=== PATIENT | male | born 1940 | race Caucasian/White ===

== ENCOUNTER 2016-10-22 15:27 | Inpatient (IN) | payer MEDICARE, OTHER ==
[~2016-10-22] VITALS: Ht 177.8 cm; Wt 95.7 kg
[2016-11-01] MEDS ORDERED: VESI10TA PO (09:30)
[2016-11-01] MEDS ORDERED: WARF4TAB51 PO (09:30)
[2016-11-01] MEDS ORDERED: HYDR-3583 PO (09:30)
[2016-11-01] MEDS ORDERED: CLON0.2T PO (09:30)
[2016-11-01] MEDS ORDERED: WARF-20 PO (09:30)
[2016-11-01] MEDS ORDERED: VITA200012 PO (09:48)
[2016-11-01] MEDS ORDERED: MULT1TAB85 PO (09:48)
[2016-11-01] MEDS ORDERED: IRON18TA2 PO (09:48)
[2016-11-01] MEDS ORDERED: VITA10007 PO (09:48)
[2016-11-11] MEDS ORDERED: TRANEXAMIC ACID INJ 906 MG in SODIUM CHLORIDE 0.9% INJ 100 ML IV SCH (09:45)
[2016-11-11] MEDS ORDERED: EXPAREL PERI-ARTICULAR INJECTION (TOTAL VOL. 60 ML) P-ARTICULR SCH ×2 (09:45)
[2016-11-11] MEDS ORDERED: METOPROLOL TARTRATE 25 MG TAB PO PRN (09:45)
[2016-11-11] MEDS ORDERED: ceFAZolin 2 GM PREMIX 50 ML IV SCH (09:45)
[2016-11-11] MEDS ORDERED: VANCOMYCIN 1000 MG/NS 250 ML (for <70 kg) IV SCH ×2 (09:45)
[2016-11-11] MEDS ORDERED: INSULIN HUMAN REGULAR 1,000 UNITS/10 ML VIAL SQ PRN (09:45)
[2016-11-11] MEDS ORDERED: SODIUM CHLORID 0.9% 500 ML IV SCH (10:00)
[2016-11-11] MEDS ORDERED: LACTATED RINGER'S 1000 ML IV SCH (10:00)
--- NOTE | 2016-11-11 11:16 | EKG ---
Date Performed: 11/11/2016 Time Performed: 10:03:56 PTAGE: 76 years EKG: ATRIAL FIBRILLATION LOW QRS VOLTAGE ABNORMAL ECG NO PREVIOUS TRACING DOCTOR: Valentin Hernández Interpretating Date/Time 11/11/2016 11:15:48
[2016-11-11] MEDS ORDERED: PHENYLEPH/NS 1000 MCG/10 ML SYR IV ONE (12:00)
[2016-11-11] MEDS ORDERED: NEOSTIGMINE 3 MG/3 ML SYR IV ONE (12:00)
[2016-11-11] MEDS ORDERED: ONDANSETRON HCL 4 MG/2 ML VIAL IV PUSH ONE (12:00)
[2016-11-11] MEDS ORDERED: PROPOFOL 200 MG/20 ML AMP IV ONE (12:00)
[2016-11-11] MEDS ORDERED: LACTATED RINGER'S 1000 ML INJ 1,000 ML IV ONE (12:00)
[2016-11-11] MEDS ORDERED: GENTAMICIN SULFATE 80 MG/2 ML VIAL ONE (12:15)
[2016-11-11] MEDS ORDERED: HEPARIN SODIUM - SQ 10,000 UNITS/ML VIAL ONE (12:23)
[2016-11-11] MEDS ORDERED: ceFAZolin INJ 1,000 MG VIAL ONE (12:41)
[2016-11-11] MEDS ORDERED: HYDROmorphone HCL PF 2 MG/ML VIAL ONE (12:55)
[2016-11-11] MEDS ORDERED: ACETAMINOPHEN 1000 MG/100 ML VIAL IV ONE (13:51)
[2016-11-11 14:30] VITALS: BP 141/85; PULSE 114; RESP 18; TEMP 95.2; O2SAT 99
[2016-11-11] MEDS: LACTATED RINGER'S 1000 ML INJ 1,000 ML IV SCH (14:53)
[2016-11-11] MEDS ORDERED: SODIUM CHLORIDE 0.9% FLUSH 5 ML FLUSH IVF PRN (15:00)
[2016-11-11] MEDS ORDERED: Post-op Orders (for Pharmacy) MISC XX ONE (15:00)
[2016-11-11] MEDS ORDERED: MISCELLANEOUS PHARMACY INFORMATION XX ONE (15:00)
[2016-11-11] MEDS ORDERED: MORPHINE SULFATE 8 MG/ML INJ IM PRN (15:00)
[2016-11-11] MEDS ORDERED: MISCELLANEOUS NURSING INFORMATION XX PRN (15:00)
--- NOTE | 2016-11-11 15:11 | PD.OP ---
cc: Irvin Arteaga MD Operative Report Date of Surgery: Nov 11, 2016 Preoperative Diagnosis: Osteoarthritis right hip, severe Postoperative Diagnosis: Same Procedure: Right total hip replacement arthroplasty, direct anterior exposure Anesthesia: Gen. 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 Despite extensive conservative care this patient continues to be painful and now presents for surgical treatment. NOTE: Suad Calabrese PA-C was present for the entire surgical procedure as my mental health assistant. In my medical opinion her skill and care was necessary for the proper management of this patient. COMPONENTS: COMPANY: [employer] CUP: [place], 54 mm, 100 series, gription surface LINER: Altrx 36, neutral STEM: Size 15, high offset, [place], hydroxyapatite-coated HEAD: 36 mm, +5, 12/14 taper PROCEDURE: This patient was brought to the operating room and anesthetized in the supine position and positioned on the fracture table with both legs held extended. The right hip and leg was scrubbed with alcohol followed by Hibiclens followed by ChloraPrep and draped sterilely. Antibiotics were given within routine time window and a timeout was done. A 4 inch incision was made starting 2 cm distal and 2 cm lateral to the anterior superior iliac spine. The fascia jewels was opened longitudinally. The interval between the fascia jewels and the rectus was opened down to the capsule of the hip joint. Retractors were positioned allowing good visualization of the capsule. This was opened longitudinally and flaps were created. Stay sutures were utilized. Exposure was excellent. The neck was cut at the proper location using fluoroscopy as a guide. The head was removed. Deep retractors were positioned allowing good visualization of the acetabulum. Acetabulum was deepened down to the floor starting with a proper size reamer and reaming up to 53 mm. A trial was utilized. Fluoroscopy was used to check position and confirmed satisfactory alignment. The rim was reamed with a 54 mm reamer and the final cup was positioned in approximately 20 of anteversion and 40-45 of abduction. Position was satisfactory. A single hole eliminator was positioned followed by the final liner. The lifting hook was utilized. The leg was dropped to the floor, maximally externally rotated and brought across the midline. Retractors were positioned. A box osteotome was utilized followed by progressive broaching to the proper stem size. Trial reduction showed excellent alignment and fit. With 60 of external rotation the leg was dropped to the floor without evidence of anterior subluxation. The wound was irrigated. The final stem was inserted and was found to be very stable. The final reduction using the final head. Stability was as previously noted. Intraoperative x-rays were taken. The wound was irrigated copiously. Hemostasis was controlled. Local anesthesia was utilized. The capsule was repaired with #2 Tycron sutures. The fascia jewels was repaired with running 0 PDS on a loop. Subcutaneous tissue was approximated with 2-0 Vicryl and skin with running intradermal 3-0 Vicryl followed by Steri-Strips. A sterile dressing was applied. The patient was awakened and taken to the recovery room in satisfactory condition. FINDINGS: There was severe osteoarthritis of the right hip. The final result was very satisfactory. No complication was appreciated. Irvin Arteaga MD Nov 11, 2016 15:11
[2016-11-11] MEDS ORDERED: OXYC1TAB63 PO (15:14)
--- NOTE | 2016-11-11 15:19 | RADRPT ---
EXAM DATE/TIME: 11/11/2016 13:35 [facility] COMPARISON: FLUOROSCOPY PORTABLE UP TO 1HR, November 11, 2016, 0:00. INDICATIONS : Total right anterior hip arthroplasty. OR. MEDICAL HISTORY : None. SURGICAL HISTORY : None. ENCOUNTER: Initial ACUITY: 1 day PAIN SCORE: Non-responsive. LOCATION: Right hip FINDINGS: Intraoperative examination demonstrates the patient be post right hip arthroplasty. Orthopedic hardwa re is in excellent position. CONCLUSION: 1. Orthopedic hardware in excellent position. Rivas Ocampo MD on November 11, 2016 at 15:17 Board Certified Radiologist. This report was verified electronically.
[2016-11-11] MEDS ORDERED: fentaNYL CITRATE 250 MCG/5 ML AMP ONE (15:35)
--- NOTE | 2016-11-11 15:45 | MH ---
cc: MAXIMUS FINK DATE OF ADMISSION: 11/11/2016 ADMITTING DIAGNOSIS: Osteoarthritis both hips, severe. HISTORY OF PRESENT ILLNESS: This is a 76-year-old white male with a long history of severe osteoarthritis of both hips. He was not felt to be a candidate for hip surgery because of severe obesity weighing at over 400 pounds. The patient has lost a significant amount weight and now is reported to weigh 90.6 kg. He is having such severe difficulty in ambulation he is felt to be a candidate for hip replacement surgery. The patient has had 2+ years of conservative care, which includes injections in both hips under anesthesia, physical therapy, use of a rolling walker, [place] for pain. He is felt to be a be a candidate for surgical treatment. PAST MEDICAL HISTORY, SOCIAL HISTORY AND FAMILY HISTORY: Some see attached notes. PHYSICAL EXAMINATION: HEIGHT: 6 feet 1. WEIGHT: 200 pounds. BMI: 27.0. VITAL SIGNS: Blood pressure 133/78. GENERAL: Mildly overweight white male who uses a walker. HEAD, EYES, EARS, NOSE, THROAT: Normocephalic, atraumatic. Pupils equal, round, reactive to light and accommodation. Extraocular muscles intact. NECK: The neck is supple. CHEST: Clear. HEART: Regular rate and rhythm. ABDOMEN: Abdomen soft and nontender. Normoactive bowel sounds. MUSCULOSKELETAL EXAMINATION: Both hips have severe restricted range of motion. Both hips have a mild flexion contracture with the right one at -30 degrees and the left one -30 degrees. Severe pain with range of motion, especially internal and external rotation. NEUROLOGIC: Within normal limits. VASCULAR EXAMINATION: Within normal limits. 1+ edema bilaterally. IMPRESSION: Osteoarthritis of both hips, severe. PLAN: Right total hip replacement arthroplasty, direct anterior exposure. CONSENT: The risks of surgery including infection, bleeding, loss of motion, continued pain, need for further surgery, neurologic or vascular injury. The patient understands these issues and wishes to press on with surgery as outlined above. Maximus Fink MD [facility] [place] /2:52 PM /3:37 PM
[2016-11-11] MEDS ORDERED: WARFARIN SOD 5 MG TAB PO ONE (16:00)
[2016-11-11 18:22] VITALS: O2SAT 100
[2016-11-11 20:40] VITALS: BP 123/74; PULSE 79; RESP 17; TEMP 96.6; O2SAT 100
[2016-11-11] MEDS: SENNOSIDES 8.6 MG TAB PO SCH (20:56)
[2016-11-11] MEDS: cloNIDine HCL 0.2 MG TAB PO SCH (20:56)
[2016-11-11] MEDS: MAGNESIUM HYDROXIDE SUSP 30 ML CUP PO SCH (20:56)
[2016-11-11] MEDS: SODIUM CHLORIDE 0.9% FLUSH 5 ML FLUSH IVF SCH (20:59)
[2016-11-11] MEDS: oxyCODONE/ACETAMINOPHEN 5 MG/325 MG TAB PO PRN (21:10)
[2016-11-11 21:18] LABS: INTERNATIONAL NORMALIZED RATIO 1.1 RATIO; PROTHROMBIN TIME - PATIENT 11.8 SEC (9.8-11.6)
[2016-11-12] VITALS (8 sets, daily range): BP systolic 88–150; BP diastolic 50–88; PULSE 79–118; RESP 16–20; TEMP 96.3–98; O2SAT 96–100
[2016-11-12] MEDS: LACTATED RINGER'S 1000 ML INJ 1,000 ML IV SCH ×2 (03:23→16:12)
[2016-11-12] MEDS: RIVAROXABAN 10 MG TAB PO SCH (03:53)
[2016-11-12 05:53] LABS: HEMATOCRIT 24.6 % (39.0-51.0); REVIEW FLAG FINAL
[2016-11-12] MEDS: MAGNESIUM HYDROXIDE SUSP 30 ML CUP PO SCH ×2 (07:44→21:31)
[2016-11-12] MEDS: oxyCODONE/ACETAMINOPHEN 5 MG/325 MG TAB PO PRN ×2 (07:45→21:32)
[2016-11-12] MEDS: TOLTERODINE TARTRATE 4 MG CAP LA PO SCH ×2 (07:46→14:29)
[2016-11-12] MEDS: cloNIDine HCL 0.2 MG TAB PO SCH ×2 (07:46→21:31)
[2016-11-12] MEDS: SODIUM CHLORIDE 0.9% FLUSH 5 ML FLUSH IVF SCH ×2 (07:46→21:32)
--- NOTE | 2016-11-12 08:07 | PD.ORT.PN ---
Subjective Subjective Remarks He is doing well. He has no pain in his hip. He has not been out of bed Range of Motion Incision dry. Mild swelling of both ankles, unchanged from preop. No calf tenderness Negative Homans sign. Objective Vitals Vital Signs Date Time Temp Pulse Resp B/P Pulse Ox O2 Delivery O2 Flow Rate FiO2 11/12/16 07:41 97.7 84 18 114/63 100 11/12/16 07:38 Room Air 11/12/16 04:25 98.0 79 18 108/60 96 11/12/16 00:25 96.3 89 17 109/69 98 11/11/16 22:13 Nasal Cannula 2.00 11/11/16 20:40 96.6 79 17 123/74 100 11/11/16 18:22 100 Nasal Cannula 3.00 11/11/16 17:02 Nasal Cannula 2.00 11/11/16 16:15 101 16 144/68 99 Nasal Cannula 2 11/11/16 16:00 96 16 135/74 99 Nasal Cannula 2 11/11/16 15:45 105 16 141/69 99 Nasal Cannula 2 11/11/16 15:30 103 16 129/75 99 Nasal Cannula 2 11/11/16 15:27 97.8 93 16 128/76 99 Nasal Cannula 2 11/11/16 14:30 95.2 114 18 141/85 99 11/11/16 09:55 97.6 83 20 152/84 100 I/O 11/11/16 11/11/16 11/11/16 11/12/16 11/12/16 11/12/16 07:00 15:00 23:00 07:00 15:00 23:00 Intake Total 1780 ml 120 ml Output Total 1700 ml 250 ml Balance 80 ml -130 ml Intake Oral 480 ml 120 ml IV Total 100 ml Other 1200 ml Output Urine Total 550 ml 250 ml Estimated Blood Loss 650 ml Other 500 ml # Bowel Movements 0 Result Diagram: 11/12/16 0530 Other Results Laboratory Tests Test 11/11/16 19:51 Prothrombin Time 11.8 SEC (9.8-11.6) Prothromb Time International 1.1 RATIO Ratio Assessment & Plan Assessment and Plan Osteoarthritis right hip, severe. Right SHARON, anterior: POD #1. PLAN: Pain as tolerated Physical therapy today Discharge to home Tuesday or Tuesday. If he is unable to go home, SNF as a backup. The patient has a neighbor who will be staying with him in helping him at his home. [place] for pain Xarelto and Coumadin for anticoagulation. When INR is greater than 1.6, Xarelto will be stopped. A prescription of Coumadin for 2 mg daily is on chart. Modify if necessary No dressing change home healthcare/home physical therapy Irvin Arteaga MD Nov 12, 2016 08:07
[2016-11-12] MEDS ORDERED: WARF4TAB51 PO (08:10)
[2016-11-12] MEDS ORDERED: WALKER WHEELS/F1 MIS (08:14)
[2016-11-12] MEDS ORDERED: MISC-163 (08:14)
--- NOTE | 2016-11-12 08:16 | HHI.DS ---
Discharge Summary Admission Date Nov 11, 2016 at 08:54 Discharge Date: Nov 15, 2016 Admitting Diagnosis see below Diagnosis: (1) Right hip pain Diagnosis: Principal (2) Osteoarthritis of right hip Diagnosis: Principal (3) Postoperative anemia Diagnosis: Secondary Procedures Right total hip arthroplasty, Direct anterior Brief History This is a 76 year old male patient with a 2+ year history of right hip pain. He initially began treating with Dr. Holden. Imaging studies were performed showing significant arthritis of the right hip. Conservative measures were pursued including an intra-articular hip injections, therapy and medications. He also started using a cane. He continued to decline. He was referred to Dr. Irvin Rae. Surgery was recommended and he elected to move forward. CBC/BMP: 11/12/16 0530 Significant Findings Laboratory Tests Test 11/11/16 11/12/16 19:51 05:30 Prothrombin Time 11.8 SEC (9.8-11.6) Hemoglobin 8.4 GM/DL (13.0-17.0) Hematocrit 24.6 % (39.0-51.0) Hospital Course Surgical treatment was performed on the day of admission without complication. He recovered well in PACU and was transferred to the orthopaedic floor. Pain was controlled with IV and oral medications. DVT prophylaxis was initiated with both xarelto and coumadin as he was on coumadin preop. He was compliant with physical therapy and all precautions. After 4 days he was found to be stable and discharged to retirement. At the time of discharge he had an INR of 2.1 and was instructed to continue therapy and pursue a high fiber diet. Pt Condition on Discharge: Stable Discharge Disposition: Discharge to SNF Discharge Instructions Diet Instructions: As Tolerated, No Restrictions, High Fiber Diet Activities You Can Perform: Weight Bearing as Jose Juan Activities to Avoid: Strenuous Activity New Medications: 3-in-1 Bedside Toilet (3-in-1 Bedside Toilet) 1 Mis Mis 1 EA .ROUTE DIRECTED #1 EA Walker with Front Wheels (Walker with Front Wheels) 1 Mis Mis 1 EA .ROUTE DIRECTED #1 Ref 0 EA Warfarin (Warfarin) 2 Mg Tab 2 MG PO DAILY Blood Clot Prevention #30 Ref 0 TAB Oxycodone-Acetaminophen (Oxycodone-Acetaminophen) 5-325 mg Tab 1 TAB PO Q4H PRN PAIN LESS THAN 5 ON SCALE #50 TAB Continued Medications: Ascorbic Acid (Vitamin C) 1,000 Mg Tab 1000 MG PO DAILY Nutritional Supplement Ref 0 TAB Cholecalciferol (Vitamin D3) 2,000 Unit Tab 2500 UNITS PO DAILY Nutritional Supplement #1 Ref 0 BOTTLE Clonidine (Clonidine) 0.2 Mg Tab 0.2 MG PO BID Blood Pressure Management #60 Ref 0 TAB Ferrous Fumarate (Iron) 18 Mg Tab Unknown Dose PO DAILY Nutritional Supplement Ref 0 TAB Hydrocodone-Acetaminophen (Hydrocodone-Acetaminophen) 10-325 mg Tab 1 TAB PO Q6H PRN PAIN Ref 0 TAB Multiple Vitamins W/ Minerals (Multivitamin Men) 1 Tab Tab 1 TAB PO DAILY Nutritional Supplement Ref 0 TAB Solifenacin (Vesicare) 10 Mg Tab 10 MG PO DAILY Urinary Symptom Managemen #30 Ref 0 TAB Warfarin (Warfarin) 4 Mg Tab 4 MG PO FR Blood Clot Prevention #30 Ref 0 TAB Warfarin (Warfarin) 2 Mg Tab 2 MG PO MO,,WE,TH,SA,MILLAN Blood Clot Prevention #30 Ref 0 TAB Shannon Fontaine Nov 12, 2016 08:16
--- NOTE | 2016-11-12 08:16 | HHI.DCPOC ---
Discharge Care Plan Diagnosis: (1) Right hip pain (2) Osteoarthritis of right hip Your Health Problems Are: Incision/Drains Goals to Promote Your Health * To prevent worsening of your condition and complications * To maintain your health at the optimal level Directions to Meet Your Goals Take your medications as prescribed Follow your dietary instruction Follow activity as directed Keep your appointments as scheduled Take your immunizations and boosters as scheduled If your symptoms worsen call your PCP, if no PCP go to Urgent Care Center or Emergency Room Smoking is Dangerous to Your Health. Avoid second hand smoke Call the 24-hour hour crisis hotline for domestic abuse at Shannon Fontaine Nov 12, 2016 08:16
--- NOTE | 2016-11-12 08:16 | HHI.FF ---
Face to Face Verification Diagnosis: (1) Osteoarthritis of right hip (2) Right hip pain Physical Therapy Gait training, Safety evaluation, Transfer training, bed to chair Hip: Total hip, Protocol: Right, Progress to weight bearing Right LE Weight Bearing: WB as tolerated Additional Instructions PT 5 days/wk for 2 weeks. WBAT RLE, anterior SHARON protocol. Walker as needed. Nursing RN Days per Week: 2 x Week(s): 1 Nursing: Other Dressing Changes: Do not change dressing Additional Instructions Vitals assessment, dressing assessment - do not change unless saturated. I have seen patient Jey Enriquez on 11/12/16. My clinical findings support the need for the requested home health care services because: Limited ability to care for self High risk of falls I certify that my clinical findings support that this patient is homebound because: Post-op weakness Unsteady gait/balance Shannon Fontaine Nov 12, 2016 08:16
[2016-11-12] MEDS: POVIDONE IODINE 7.5% SCRUB 118 ML BOTTLE TOP SCH (09:45)
[2016-11-12] MEDS ORDERED: PNEUMOCOCCAL POLYVALENT INJ 25 MCG/0.5 ML SYR IM ONE (10:00)
[2016-11-12 12:36] LABS: INTERNATIONAL NORMALIZED RATIO 1.3 RATIO; PROTHROMBIN TIME - PATIENT 14.3 SEC (9.8-11.6)
[2016-11-12] MEDS: WARFARIN SOD 5 MG TAB PO SCH (14:30)
[2016-11-12] MEDS: BISACODYL 10 MG SUPP PR PRN (18:31)
[2016-11-12] MEDS: SENNOSIDES 8.6 MG TAB PO SCH (21:31)
[2016-11-13] VITALS: BP 120/65; PULSE 85; RESP 16; TEMP 98.7; O2SAT 96
[2016-11-13] MEDS: RIVAROXABAN 10 MG TAB PO SCH (04:03)
[2016-11-13] MEDS: LACTATED RINGER'S 1000 ML INJ 1,000 ML IV SCH (04:03)
[2016-11-13 07:39] LABS: REVIEW FLAG FINAL
[2016-11-13 08:00] VITALS: BP 111/69; PULSE 75; RESP 18; TEMP 97.1; O2SAT 100
--- NOTE | 2016-11-13 08:16 | PD.ORT.PN ---
Subjective Post Op Day #: 2 Subjective Remarks pain tolerable. urinating. no BM yet. Objective Vitals Vital Signs Date Time Temp Pulse Resp B/P Pulse Ox O2 Delivery O2 Flow Rate FiO2 11/13/16 00:00 98.7 85 16 120/65 96 11/12/16 20:00 96.6 118 20 150/88 99 11/12/16 20:00 Nasal Cannula 2.00 11/12/16 19:08 97 21 11/12/16 16:00 97.9 100 18 104/50 97 11/12/16 12:02 97.4 102 16 88/57 99 11/12/16 09:28 98 21 I/O 11/12/16 11/12/16 11/12/16 11/13/16 11/13/16 11/13/16 07:00 15:00 23:00 07:00 15:00 23:00 Intake Total 120 ml 1449 ml 1134 ml 913 ml Output Total 250 ml 500 ml Balance -130 ml 1449 ml 1134 ml 413 ml Intake Oral 120 ml 660 ml 480 ml 240 ml IV Total 789 ml 654 ml 673 ml Output Urine Total 250 ml 500 ml Result Diagram: 11/13/16 0704 Other Results Laboratory Tests Test 11/12/16 12:05 Prothrombin Time 14.3 SEC (9.8-11.6) Prothromb Time International 1.3 RATIO Ratio Procedures Right total hip arthroplasty, Direct anterior Objective Remarks in bed, nad dressing has some bloody drainage neg homans nvi Assessment & Plan Ortho Post Op Day #: 2 Problem List: (1) Right hip pain (2) Osteoarthritis of right hip Assessment and Plan Osteoarthritis right hip, severe. Right SHARON, anterior: POD #2. PLAN: Pain as tolerated Physical therapy today Discharge to SNF probably tomorrow [place] for pain Xarelto and Coumadin for anticoagulation. When INR is greater than 1.6, Xarelto will be stopped. A prescription of Coumadin for 2 mg daily is on chart. Modify if necessary dressing wet. start daily dressing changes Jimmie Guzmán Nov 13, 2016 08:16
[2016-11-13] MEDS: SODIUM CHLORIDE 0.9% FLUSH 5 ML FLUSH IVF SCH ×2 (09:00→21:00)
[2016-11-13] MEDS: TOLTERODINE TARTRATE 4 MG CAP LA PO SCH (09:39)
[2016-11-13] MEDS: WARFARIN SOD 5 MG TAB PO SCH (09:39)
[2016-11-13] MEDS: cloNIDine HCL 0.2 MG TAB PO SCH ×2 (09:40→21:36)
[2016-11-13] MEDS: MAGNESIUM HYDROXIDE SUSP 30 ML CUP PO SCH ×2 (09:41→21:36)
[2016-11-13] MEDS: oxyCODONE/ACETAMINOPHEN 5 MG/325 MG TAB PO PRN (09:41)
[2016-11-13] MEDS: POVIDONE IODINE 7.5% SCRUB 118 ML BOTTLE TOP SCH (09:45)
[2016-11-13 12:00] VITALS: BP 93/57; PULSE 89; RESP 18; TEMP 97.7; O2SAT 100
[2016-11-13 16:00] VITALS: BP 123/68; PULSE 115; RESP 18; TEMP 97; O2SAT 100
[2016-11-13 20:22] VITALS: BP 115/69; PULSE 106; RESP 16; TEMP 97.9; O2SAT 98
[2016-11-13] MEDS: SENNOSIDES 8.6 MG TAB PO SCH (21:36)
[2016-11-14 00:02] VITALS: BP 105/61; PULSE 79; RESP 16; TEMP 98.4; O2SAT 98
[2016-11-14] MEDS: RIVAROXABAN 10 MG TAB PO SCH (03:39)
[2016-11-14 08:00] VITALS: BP 135/82; PULSE 88; RESP 18; TEMP 97; O2SAT 94
--- NOTE | 2016-11-14 08:17 | PD.ORT.PN ---
Subjective Post Op Day #: 3 Subjective Remarks pain tolerable. urinating. no BM yet. feeling better. Objective Vitals Vital Signs Date Time Temp Pulse Resp B/P Pulse Ox O2 Delivery O2 Flow Rate FiO2 11/14/16 00:02 98.4 79 16 105/61 98 11/13/16 20:22 97.9 106 16 115/69 98 11/13/16 18:19 21 11/13/16 16:00 97.0 115 18 123/68 100 11/13/16 12:00 97.7 89 18 93/57 100 I/O 11/13/16 11/13/16 11/13/16 11/14/16 11/14/16 11/14/16 07:00 15:00 23:00 07:00 15:00 23:00 Intake Total 913 ml 960 ml 360 ml Output Total 500 ml 425 ml 200 ml Balance 413 ml 535 ml 160 ml Intake Oral 240 ml 960 ml 360 ml IV Total 673 ml Output Urine Total 500 ml 425 ml 200 ml # Bowel Movements 0 Result Diagram: 11/13/16 0704 Procedures Right total hip arthroplasty, Direct anterior Objective Remarks in bed, nad incision no erythema, slight bloody drainage neg homans nvi Assessment & Plan Ortho Post Op Day #: 3 Problem List: (1) Right hip pain (2) Osteoarthritis of right hip Assessment and Plan Osteoarthritis right hip, severe. Right SHARON, anterior: POD #3. PLAN: Pain as tolerated Physical therapy today Discharge to SNF - cleared for d/c by ortho [place] for pain Xarelto and Coumadin for anticoagulation. When INR is greater than 1.6, Xarelto will be stopped. A prescription of Coumadin for 2 mg daily is on chart. Modify if necessary dressing wet. start daily dressing changes Jimmie Guzmán Nov 14, 2016 08:17
[2016-11-14] MEDS: MAGNESIUM HYDROXIDE SUSP 30 ML CUP PO SCH ×2 (08:19→20:14)
[2016-11-14] MEDS: WARFARIN SOD 5 MG TAB PO SCH (08:20)
[2016-11-14] MEDS: TOLTERODINE TARTRATE 4 MG CAP LA PO SCH (08:20)
[2016-11-14] MEDS: cloNIDine HCL 0.2 MG TAB PO SCH ×2 (08:20→20:14)
[2016-11-14] MEDS: SODIUM CHLORIDE 0.9% FLUSH 5 ML FLUSH IVF SCH ×2 (09:00→20:15)
[2016-11-14 12:00] VITALS: BP 89/42; PULSE 96; RESP 18; TEMP 97.2; O2SAT 96
[2016-11-14 15:03] VITALS: O2SAT 96
[2016-11-14 16:00] VITALS: BP 105/74; PULSE 96; RESP 18; TEMP 97; O2SAT 95
[2016-11-14] MEDS: SENNOSIDES 8.6 MG TAB PO SCH (20:14)
[2016-11-14 20:47] VITALS: BP 119/70; PULSE 84; RESP 17; TEMP 97.8; O2SAT 99
[2016-11-15 00:54] VITALS: BP 112/60; PULSE 85; RESP 18; TEMP 98.1; O2SAT 98
[2016-11-15] MEDS: RIVAROXABAN 10 MG TAB PO SCH (03:49)
[2016-11-15] MEDS: oxyCODONE/ACETAMINOPHEN 5 MG/325 MG TAB PO PRN (03:52)
[2016-11-15 04:39] VITALS: BP 119/63; PULSE 77; RESP 18; TEMP 97.6; O2SAT 95
[2016-11-15 08:00] VITALS: BP 123/64; PULSE 77; RESP 18; TEMP 97.4; O2SAT 99
[2016-11-15] MEDS: WARFARIN SOD 5 MG TAB PO SCH (09:00)
[2016-11-15 09:37] LABS: INTERNATIONAL NORMALIZED RATIO 2.1 RATIO; PROTHROMBIN TIME - PATIENT 24.5 SEC (9.8-11.6)
[2016-11-15] MEDS: SODIUM CHLORIDE 0.9% FLUSH 5 ML FLUSH IVF SCH (10:55)
[2016-11-15] MEDS: cloNIDine HCL 0.2 MG TAB PO SCH (10:56)
[2016-11-15] MEDS: TOLTERODINE TARTRATE 4 MG CAP LA PO SCH (10:56)
[2016-11-15] MEDS: MAGNESIUM HYDROXIDE SUSP 30 ML CUP PO SCH (10:57)
[2016-11-15] MEDS: BISACODYL 10 MG SUPP PR PRN (11:12)
[2016-11-15 12:00] VITALS: BP 114/68; PULSE 110; RESP 18; TEMP 97.4; O2SAT 98
[2016-11-16] MEDS ORDERED: WARFARIN SOD 5 MG TAB PO SCH (09:00)
[2016-11-17] MEDS ORDERED: RIVAROXABAN 10 MG TAB PO SCH (03:00)
== END 2016-11-15 16:24 | DRG 470 ==
LOC: EDUNIT# 11-11 07:30 → HSDI 11-11 08:54 → N06B 11-11 16:43
PROVIDERS: ADMIT Orthopaedic Surgery Orthopaedic Surgery of the Spine; ATTEND Orthopaedic Surgery Orthopaedic Surgery of the Spine
PROC: 0SR902A Replacement of Right Hip Joint with Metal on Polyethylene Synthetic Substitute, Uncemented, Open Approach (ICD-10-PCS; principal; 2016-11-11 12:37)
DX: M16.0 Bilateral primary osteoarthritis of hip (principal); I48.91 Unspecified atrial fibrillation; I10 Essential (primary) hypertension; Q65.89 Other specified congenital deformities of hip; Z23 Encounter for immunization; Z79.01 Long term (current) use of anticoagulants
CPT/HCPCS: 73502; 76000; 85014; 85018; 85610; 86850; 86900; 86901; 86920; 90471; 90732; 93005; 94150; C1776; C9290; G0009; J0131; J0690; J1170; J1580; J1644; J2370; J2405; J2710; J3010; J7120

== ENCOUNTER → 2016-11-01 | Outpatient (CLI) | payer MEDICARE ==
[~2016-11-01] MED LIST: CLON0.2T PO; HYDR-3583 PO; IRON18TA2 PO; MISC-163; MULT1TAB85 PO; OXYC1TAB63 PO; VESI10TA PO; VITA10007 PO; VITA200012 PO; WALKER WHEELS/F1 MIS; WARF-20 PO; WARF4TAB51 PO
== END ==
LOC: CPRE 08:44
PROVIDERS: ATTEND Orthopaedic Surgery Orthopaedic Surgery of the Spine
DX: Z01.818 Encounter for other preprocedural examination (principal); M16.11 Unilateral primary osteoarthritis, right hip; Z79.01 Long term (current) use of anticoagulants